=== PATIENT | male | born 1960 | race Caucasian/White ===

== ENCOUNTER → 2017-02-14 | Outpatient (CLI) | payer OTHER ==
[~2017-02-14] MED LIST: CORTISPORIN OTI10 M2 OTIC; IBUPROFEN 600600 M1 PO; MEDROLDOSEPACK PO; NOHOMEMEDICATIONS; PROVENTIL HFA6.7 G1 INH
--- NOTE | 2017-02-16 14:59 | TST ---
[place] [address] TREADMI[facility] STRESS TEST Name: YVESRICARDO J Room: [facility]#: [id number] Admission: 02/14/17 Attend Phys: Fatou Velásquez Discharge: Date of : 62 Date of Service: 02/14/17 1552 Report #: [id number] THIS REPORT FOR: //name// CC: Estuardo Womack NP INDICATIONS: Exercise stress test was requested in this patient. PROCEDURE: Exercise stress test was performed in this patient on a Anderson protocol from a Pretest heart rate of 68 and blood pressure 132/84. RESULTS: The patient was able to exercise for 7 minutes and 8 seconds on a Anderson protocol achieving a peak heart rate of 156, which was greater than 90% of maximum predicted heart rate for the patient's age. Peak blood pressure was 206/92. In recovery, the patient, heart rate 86 and blood pressure 128/82. The patient denied chest pains and exercise was terminated because of fatigue. The patient's resting ECG showed a normal sinus rhythm with no significant ST or T-wave change noted at baseline. With exercise, there were no arrhythmias noted. The patient did develop ST-segment depression after 3 minutes of exercise and at peak exercise was noted to have 1.[address]-segment depression in V4, V5 and V6. The ST-segment changes persisted beyond 6 minutes in recovery. IMPRESSION: 1. Adequate exercise tolerance. 2. No chest pain with exercise. 3. Nondiagnostic ST-segment changes noted. 4. Nondiagnostic exercise stress test for myocardial ischemia secondary to nondiagnostic ST-segment changes noted. 5. If clinically indicated, I would consider exercise stress testing with myocardial perfusion imaging to improve the specificity of stress testing to rule out ischemic heart disease. <ELECTRONICALLY SIGNED> By: Evans Segovia MD, FACC 02/16/17 1459 [id number] [id number] Evans Segovia MD, FACC /nt
== END ==
LOC: M.CRD 10:50
DX: R94.31 Abnormal electrocardiogram [ECG] [EKG] (principal)

== ENCOUNTER → 2018-03-04 | Outpatient (CLI) | payer OTHER | LOC: M.CT 10:16 | DX: K76.0 Fatty (change of) liver, not elsewhere classified (principal); M47.894 Other spondylosis, thoracic region; R91.1 Solitary pulmonary nodule; Z85.820 Personal history of malignant melanoma of skin ==

== ENCOUNTER → 2018-03-18 | Outpatient (CLI) | payer OTHER ==
--- NOTE | 2018-03-19 14:01 | SLEEP ---
[address] [address] SLEEP STUDY REPORT Name: RICARDO MARINELLI Room: [facility]#: [id number] Admission: 03/18/18 Attend Phys: CHARLEY GALE Discharge: Date of : 62 Report #: [id number] THIS REPORT FOR: //name// CC: Estuardo Hadley This study has been reviewed in its entirety by a board certified sleep specialist DATE OF SERVICE: 03/18/2018 ATTENDING PHYSICIAN: Dr. Aysha Hadley. The patient is 57 years old who weighs 155 pounds with a BMI of 24.3. The patient's Sebago score was 4. The patient underwent diagnostic study performed at [facility]. During the night study, the patient spent 486 minutes in bed and slept for 297 minutes with a lowest sleep efficiency of 61%. Sleep latency was 53 minutes with a REM latency of 144 minutes. Overall, sleep architecture showed normal stage 1 and stage 2 sleep, increased slow wave and normal REM sleep. During the night study, the patient had only 1 obstructive apneas, no mixed or central apneas and 13 hypopneas. The patient's apnea hypopnea index was 2.8 per hour with a REM index of 1.9 per hour and a supine index of 7.3 per hour. EKG monitoring revealed an average heart rate of 51 beats per minute with a maximum 70 beats per minute. No sustained arrhythmias were observed. PLMs were seen at an index of 7.9 per hour and 1 per hour caused EEG arousals. Nocturnal oximetry study revealed an average oxygen saturation of 96% with a lowest of 91%. Due to low AHI, the patient did not meet the split night criteria for CPAP initiation. IMPRESSION: 1. No clinically significant sleep disordered breathing. The patient's apnea hypopnea index for the entire night was 2.8 per hour. Mild positional respiratory events were observed with a supine apnea hypopnea index of 7 per hour. 2. No clinically significant nocturnal hypoxia. 3. No clinically significant periodic limb movements. 4. Reduce sleep efficiency resulting from sleep onset [place] [address] SLEEP STUDY REPORT Name: RICARDO MARINELLI Room: [facility]#: [id number] Admission: 03/18/18 Attend Phys: CHARLEY GALE Discharge: Date of : 62 Report #: [id number] insomnia. RECOMMENDATIONS: 1. The patient did not meet the criteria for CPAP initiation. 2. Avoid supine sleep. 3. Avoid [employer] depressants. 4. Evaluate and treat insomnia. <ELECTRONICALLY SIGNED> By: Mark Crowe MD 03/19/18 1401 1053 [id number] Keegan Crowe MD /nt
== END ==
LOC: M.SLEEPLAB 19:26
DX: G47.30 Sleep apnea, unspecified (principal); G47.00 Insomnia, unspecified; R06.83 Snoring; Z68.24 Body mass index [BMI] 24.0-24.9, adult

== ENCOUNTER → 2018-06-05 | Outpatient (CLI) | payer OTHER | LOC: M.CT 07:38 | DX: R91.1 Solitary pulmonary nodule (principal); K76.0 Fatty (change of) liver, not elsewhere classified; D17.79 Benign lipomatous neoplasm of other sites ==